=== PATIENT | female | born 1950 | race Caucasian/White ===

== ENCOUNTER 2016-10-06 22:05 | Emergency (ER) | payer OTHER ==
[~2016-10-06] VITALS: Ht 162.6 cm; Wt 56.7 kg
[~2016-10-06 22:05] MED LIST: AUGMENTIN 875875 MG PO; CEFTRIAXON1 GM/50 ML IV; CYMBALTA60 MG PO; DOXYCYCLINE 10100 MG PO; HYDROCODONE-AP1 EAC6 PO; KEFLEX500 MG PO; KEPPRA750 MG PO; LAMICTAL100 MG PO; MIRALAX17 GM PO; PERCOCET 5-3251 EACH PO; TOPAMAX 100 MG100 MG PO; TOPAMAX 25 MG T25 M1 PO; TYLENOL325 MG PO; UNICOMPLEX M TA1 TA1 PO; VITAMIN B COMP1 EACH PO; VITAMIN B-150 MG PO; VITAMIN B12-FO1 EAC1 PO; VITAMIN B122500 MCG; VITAMIN C500 M1 PO; ZOFRAN ODT4 MG PO
[2016-10-06] MEDS ORDERED: KEPPRA 500 MG500 M1 PO (22:39)
[2016-10-06] MEDS ORDERED: LEVETIRACETAM250 MG PO (22:40)
[2016-10-07] MEDS ORDERED: NORCO 5-325 TA1 EACH PO (00:50)
== END 2016-10-07 01:05 | disposition home or self-care (01) ==
LOC: ER 22:05
DX: S52.501A Unspecified fracture of the lower end of right radius, initial encounter for closed fracture (principal); S52.611A Displaced fracture of right ulna styloid process, initial encounter for closed fracture; F10.120 Alcohol abuse with intoxication, uncomplicated; Z98.890 Other specified postprocedural states; Z87.891 Personal history of nicotine dependence; X58.XXXA Exposure to other specified factors, initial encounter; Y93.89 Activity, other specified; Y92.89 Other specified places as the place of occurrence of the external cause; Y99.8 Other external cause status

== ENCOUNTER 2016-10-24 14:14 | Emergency (ER) | payer OTHER ==
[~2016-10-24] VITALS: Ht 175.3 cm; Wt 63.5 kg
[~2016-10-24 14:14] MED LIST changes: +KEPPRA 500 MG500 M1 PO; +LEVETIRACETAM250 MG PO; +NORCO 5-325 TA1 EACH PO
== END 2016-10-24 15:38 | disposition home or self-care (01) ==
LOC: ER 14:14
DX: S52.591A Other fractures of lower end of right radius, initial encounter for closed fracture (principal); G62.9 Polyneuropathy, unspecified; F10.99 Alcohol use, unspecified with unspecified alcohol-induced disorder; Z86.14 Personal history of Methicillin resistant Staphylococcus aureus infection; Z87.891 Personal history of nicotine dependence; W17.89XA Other fall from one level to another, initial encounter; Y93.89 Activity, other specified; Y92.89 Other specified places as the place of occurrence of the external cause; Y99.8 Other external cause status

== ENCOUNTER → 2017-01-20 | Outpatient (CLI) | payer OTHER | LOC: ULTRA 07:51 | DX: R92.8 Other abnormal and inconclusive findings on diagnostic imaging of breast (principal) ==

== ENCOUNTER → 2018-01-04 | Outpatient (CLI) | payer OTHER | LOC: CAT 14:43 | DX: S02.32XA Fracture of orbital floor, left side, initial encounter for closed fracture (principal); S06.9X0A Unspecified intracranial injury without loss of consciousness, initial encounter; X58.XXXA Exposure to other specified factors, initial encounter; Y93.89 Activity, other specified; Y92.89 Other specified places as the place of occurrence of the external cause; Y99.8 Other external cause status ==

== ENCOUNTER 2018-07-23 10:40 | Emergency (ER) | payer OTHER, MEDICARE ==
[~2018-07-23] VITALS: Ht 172.7 cm; Wt 65.8 kg
[2018-07-23 14:35] VITALS: BP 135/71
== END 2018-07-23 14:36 | disposition home or self-care (01) ==
LOC: ER 10:40
DX: S29.9XXA Unspecified injury of thorax, initial encounter (principal); S92.351A Displaced fracture of fifth metatarsal bone, right foot, initial encounter for closed fracture; S46.911A Strain of unspecified muscle, fascia and tendon at shoulder and upper arm level, right arm, initial encounter; S20.211A Contusion of right front wall of thorax, initial encounter; S01.81XA Laceration without foreign body of other part of head, initial encounter; Z87.891 Personal history of nicotine dependence; W01.0XXA Fall on same level from slipping, tripping and stumbling without subsequent striking against object, initial encounter; Y93.89 Activity, other specified; Y92.89 Other specified places as the place of occurrence of the external cause; Y99.8 Other external cause status

== ENCOUNTER 2018-08-09 10:49 | Inpatient (IN) | payer OTHER, MEDICARE ==
[~2018-08-09] VITALS: Ht 172.7 cm; Wt 76.3 kg
[~2018-08-09 10:49] MED LIST changes: -KEPPRA 500 MG500 M1 PO; +KEPPRA250 MG PO
[2018-08-09 11:08] LABS: ABSOLUTE NEUTROPHILS 7.6 thou/uL (1.4-8.2); BASOPHILS 0.7 % (0.0-2.0); EOSINOPHILS 0.1 % (0.0-3.0); HEMATOCRIT 38.3 % (37.0-47.0); HEMOGLOBIN 12.8 gm/dL (12.0-15.0); LYMPHOCYTES 19.8 % (24.0-44.0); MCH 32.4 pg (26.0-34.0); MCHC 33.5 g/dL (28.0-37.0); MCV 96.8 fL (80.0-100.0); PLATELET COUNT 328 thou/uL (150-400); POLYS 68.4 % (36.0-66.0); RBC 3.96 mil/uL (4.20-5.00); RDW 12.5 % (10.5-14.5); WBC 11.2 thou/uL (4.0-11.0)
[2018-08-09 11:17] LABS: CALCIUM 8.5 mg/dL (8.5-10.1); CREATININE 0.9 mg/dL (0.6-1.0); POTASSIUM 3.7 mmol/L (3.5-5.1)
[2018-08-09 11:23] LABS: ALBUMIN 3.6 g/dL (3.4-5.0); TOTAL BILIRUBIN 0.5 mg/dL (<0.1-1.0)
[2018-08-09] MEDS ORDERED: ATORVASTATIN CA40 MG PO (12:00)
[2018-08-09] MEDS ORDERED: FOSAMAX 70 MG T70 MG PO (13:34)
[2018-08-09] MEDS ORDERED: KEPPRA250 MG PO (13:34)
[2018-08-09] MEDS ORDERED: VITAMIN D2000 UNIT PO (13:35)
[2018-08-09 13:58] VITALS: BP 134/81
[2018-08-09 16:16] VITALS: BP 105/80
--- NOTE | 2018-08-09 16:36 | NUR ---
INITIAL ASSESSMENT: Pt evaluated for d/c planning needs. Reviewed chart and received telephone call from pt's PCP Dr Reilly. Pt lives alone in [address] [facility]. Pt said she was recovering from broken bones in her foot and fell again. Pt said she has walker and cane at home, and has history of alcohol use. PCP asked that CM call pt's daughter. Called daughter and left message. Pt has had home health in the past, and thinks it may have been [facility]. Will await input from PT after surgery re: d/c needs.
--- NOTE | 2018-08-09 17:05 | EKG ---
[address] [address] ELECTROCARDIOGRAM REPORT Name: SEFERINO SHETTY Room #: 364-P ADM IN M.R.#: [id number] ������������������ Admission: 08/09/18 ������������������ Attend Phys: Gildardo Chino MD Discharge: ������������������ Date of : 46 Report #: [id number] ����������������������������������������������������������������� [id number] THIS REPORT FOR: //name// [facility] ED Test Date: 2018-08-09 Test Time: 11:34:55 Pat Name: SEFERINO SHETTY Department: Room: 364 Gender: F Tree Farmer: STEPHANIE : 1950 Requested By: Shannan Wood Order Number: [id number] MD: Conrado Hartmann Measurements Intervals [place] Rate: 94 P: 63 SC: 150 QRS: 28 QRSD: 94 T: 52 QT: 366 QTc: 458 Interpretive Statements Sinus rhythm Borderline low voltage, extremity leads Baseline wander in lead(s) III,aVL,aVF,V2,V3,V4 No previous ECG available for comparison Electronically Signed On 08-09-2018 17:05:16 CDT by Conrado Hartmann [email or web address] ��������������������������������������������� <ELECTRONICALLY SIGNED> ���������������������������������������� By: Conrado Hartmann MD ��������������������������������������������� 08/09/18 1705 1134 1134 Conrado Hartmann MD /EPI
--- NOTE | 2018-08-09 18:42 | NUR ---
PT LIVES IN [facility] WITH 3 LEVELS ALONE...SHE HAS HAD MANY FALLS LATELY..FELL 2 WEEKS AGO AND HAS RT FX FOOT WITH WALKING BOOT...FELL LAST NIGHT @ 2345 IN KITCHEN AND FX RT FEMUR..SON STATES HIS MOM DRINKS AT LEAST 1/2 BOTTLE OF WINE EACH DEMETRIO..SHE STATES SHE FORGETS TO TAKE SEVERAL OF HER MEDS..SON AND HIS SISTER WANT PSYCH TO EVALUATE THEIR MOTHER FOR MEMORY ISSUES AND ETOH..
[2018-08-09 19:04] VITALS: BP 129/74
[2018-08-09 23:22] VITALS: BP 117/49
[2018-08-10] VITALS (20 sets, daily range): BP systolic 93–119; BP diastolic 47–62
[2018-08-10 05:11] LABS: HEMATOCRIT 30.8 % (37.0-47.0); MCHC 33.6 g/dL (28.0-37.0); MCV 98.3 fL (80.0-100.0); RBC 3.14 mil/uL (4.20-5.00); RDW 12.6 % (10.5-14.5); WBC 7.4 thou/uL (4.0-11.0)
[2018-08-10 05:13] LABS: HEMOGLOBIN 10.4 gm/dL (12.0-15.0)
[2018-08-10 05:22] LABS: CALCIUM 7.8 mg/dL (8.5-10.1); CREATININE 0.6 mg/dL (0.6-1.0); POTASSIUM 3.3 mmol/L (3.5-5.1)
--- NOTE | 2018-08-10 06:45 | NUR ---
PAITENT IS BED REST DUE TO HIP FX. PATIENT IS ALERT AND ORIENTED. CWIA IS A TWO. DAY ONE WITHOUT A DRINK. PATIENT LEFT FOR SURGERY AT 0615. PATIENT HAS BEEN NPO SENSE MIDNIGHT. PATIENT HAS A PRESTON. PATIENT IS ACHS. PATIENT WANTS TO KNOW BLOOD TYPE. PATIENTS PAIN IS CONTROLLED WITH PAIN MEDS WCM. PATIENT IS PROGRESSING TO GOALS.
--- NOTE | 2018-08-10 09:25 | NUR ---
post op report received from Nuria/david. pt's relative in room awaiting the pt's return to the room.
--- NOTE | 2018-08-10 09:56 | NUR ---
pt received to room 360 @ 0945 via her bed. vs taken and placed on interval timing. ivf's begun w/o concern, at this time, to lt fa. pt co thirst, given water to drink, w/o n/v at this time. x2 family members at bs.
--- NOTE | 2018-08-10 11:27 | NUR ---
pt resting quietly and comfortably in her bed w/ her son and grandson at bs. pt awaking occassionally dt hearing alarms and hallway noises, but easely and quickly falls back to sleep. pt co of rt hip discomfort 3-07/04 when awaken and asked, medicated w/ pain pill. ice pack to rt hip. pt on bedrest, bed alarm on. pt taking clear liquids w/ n/v. rt hip drsg c/d/i at this time.
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
[2018-08-11 04:00] VITALS: BP 88/51
[2018-08-11 06:19] LABS: HEMATOCRIT 25.6 % (37.0-47.0); HEMOGLOBIN 8.7 gm/dL (12.0-15.0); MCH 33.4 pg (26.0-34.0); MCHC 33.9 g/dL (28.0-37.0); MCV 98.6 fL (80.0-100.0); RBC 2.6 mil/uL (4.20-5.00); RDW 12.4 % (10.5-14.5); WBC 7.3 thou/uL (4.0-11.0)
--- NOTE | 2018-08-11 06:42 | NUR ---
PT MAKING SLOW PROGRESS TOWARDS GOALS. PT GIVEN LORTAB WITH ONLY MILD RELIEF. PT REPORTED MORE MODERATE RELIEF WITH IV MORPHINE. DENIES ANY OTHER COMPLAINTS. ENCOURAGED TO ASK FOR PAIN MEDICATION PRIOR TO WORKING WITH PHYSICAL THERAPY.
[2018-08-11 07:33] VITALS: BP 106/55
[2018-08-11 12:08] VITALS: BP 157/79
[2018-08-11 16:17] VITALS: BP 130/63
[2018-08-11 19:12] VITALS: BP 110/62
[2018-08-12 03:40] VITALS: BP 110/58
--- NOTE | 2018-08-12 07:43 | NUR ---
PT MAKING SLOW PROGRESS TOWARDS GOALS. X1 DOSE OF IV MORPHINE GIVEN FOR COMPLAINTS OF PAIN RIGHT HIP. NOTED PT LATE IN THE EVENING WAS YELLING OUT. UPON APPROACH THE PT STATED THAT HER SON WAS TRYING TO GET IN THROUGH THE WINDOW. PT HELD THIS BELIEF FIRMLY DESPITE ATTEMPT TO PROVIDE REALITY ORIENTATION. DID ENCOURAGE PT AND SHE DID AGREE TO TAKE THE LORTAB FOR PAIN INSTEAD OF THE MORPHINE.
[2018-08-12 08:05] VITALS: BP 100/42
--- NOTE | 2018-08-12 08:28 | NUR ---
care of pt assumed this am @ ~0700. pt noted to be resting quietly and comfortably in bed this am, before awokened for am assessment and medications. pt noted to be aox4, denies hallucinations (auditory and visual) at this time. pt states that her son was here in the hospital numerous times last night, noc rn states that the pt's son was not here for his shift, day rn noted pt's son to be here from ~ [id number] yesterday, but not this am. pt's son noted to work noc shift, has a and a son. pt noted to be confused and forgetful at times this am. pt co pain (when she moves) to her rt hip this am, 5-7/10, given po pain medication. pt encouraged to increase her activity today, (up to her chair x2 today and ambulation) to improve her mobility, strength and endurance. pt agrees that she will try. pt is post op day #2 today.
[2018-08-12 16:23] VITALS: BP 114/51
[2018-08-12 20:06] VITALS: BP 118/55
--- NOTE | 2018-08-13 04:18 | NUR ---
PT RESTING IN BED, APPEARS TO BE SLEEPING. PT ON RA. SR ON MONITOR. PT WITH MOHAN IN TACT. PT REQUIRED DOSE OF PAIN MEDICATION DURING SHIFT.
[2018-08-13 05:19] VITALS: BP 115/54
[2018-08-13 07:33] VITALS: BP 111/57
--- NOTE | 2018-08-13 11:14 | NUR ---
tele dc'd per dr. house ordered, verbally shared w/ rn. ms status now. pt awaiting placement for rehab by cm/sw.
--- NOTE | 2018-08-13 11:56 | NUR ---
Following for d/c planning needs. Reviewed chart and spoke with nurse, pt and pt's son. Pt is agreeable with going to rehab/SNF on d/c from hospital. Pt would prefer rehab, and would go to [facility] or [facility] SNF if [facility] Re[facility] not accepting. Awaiting input from Rehab re: acceptance.
--- NOTE | 2018-08-13 12:01 | O ---
[facility] [place] [address] OPERATIVE REPORT Name: SEFERINO SHETTY Room #: 360-P ADM IN M.R.#: [id number] Admission: 08/09/18 ������������������ Attend Phys: Gildardo Chino MD Discharge: ������������������ Date of : 46 Report #: [id number] THIS REPORT FOR: //name// CC: Gildardo Relily DATE OF SERVICE: 08/10/2018 PREOPERATIVE DIAGNOSIS: Right proximal femur fracture. POSTOPERATIVE DIAGNOSIS: Right proximal femur fracture. PROCEDURE: Right proximal femur fracture fixation with TFN nail. SURGEON: Milo Rolon MD INDICATIONS: This 67-year-old female with a number of general medical problems fell 24 hours ago injuring the right hip. X-rays confirmed an intertrochanteric fracture with moderate displacement. She has no other apparent injuries. We have discussed treatment options and she has elected to go ahead with surgical repair. DESCRIPTION OF PROCEDURE: The patient was taken to the operating room where she was placed under general anesthesia. Prophylactic intravenous antibiotics were administered. She was positioned on the fracture table with gentle longitudinal traction and slight internal rotation, which brought the fracture back into very satisfactory position. This was confirmed with the C-arm. The lateral aspect of the hip and thigh were meticulously prepped and draped. A skin incision was made just proximal to the greater trochanter and a guidewire passed through the tip of the trochanter into the canal. The trochanter was opened and an 11-mm diameter Synthes TFN nail was inserted. This was advanced to an appropriate level. A lateral guidewire was then passed through the lateral femoral cortex into the femoral neck and head positioning this in the mid to lower portion of the neck, which appeared to be quite satisfactory. This was confirmed with C-arm views. A 100 mm length helical blade was then inserted. This was impacted to a point about 10 mm below the subchondral bone at the femoral head. It seated nicely and appeared to be secure. The proximal fixation screw was tightened down. The distal interference screw was then inserted using the outrigger guide. It also seated nicely and appeared to be secure. The C-arm views revealed very satisfactory alignment of the fracture and the fixation. The wounds were gently irrigated and closed using 2-0 Monocryl and skin castillo. [address] [address] OPERATIVE REPORT Name: SEFERINO SHETTY [place] Room #: 360-P [facility] IN ..#: [id number] Admission: 08/09/18 ������������������ Attend Phys: Gildardo Chino MD Discharge: ������������������ Date of : 46 Report #: [id number] A sterile dressing was applied. The patient was awakened and returned to the recovery room in good condition. ��������������������������������������������� <ELECTRONICALLY SIGNED> ���������������������������������������� By: Milo Rolon MD ��������������������������������������������� 08/13/18 1201 0829 1033 Milo Rolon MD /nt
[2018-08-13] MEDS ORDERED: XARELTO10 MG PO ×2 (13:53)
[2018-08-13] MEDS ORDERED: HYDROCODON-ACE1 EAC7 PO ×2 (13:53)
[2018-08-13 16:37] VITALS: BP 129/49
--- NOTE | 2018-08-17 16:14 | HC ---
[facility] [address] CONSULTATION Name: SEFERINO SHETTY Room #: 360-P [facility] IN M.R.#: [id number] Admission: 08/09/18 ������������������ Attend Phys: Gildardo Chino MD Discharge: 08/13/18 ������������������ Date of : 46 Report #: [id number] THIS REPORT FOR: //name// CC: Gildardo Reilly DATE OF SERVICE: 08/09/2018 REASON FOR CONSULTATION: Right hip fracture. HISTORY OF PRESENT ILLNESS: The patient is a 67-year-old female who fell last night around midnight. She then reported right hip pain, is unsure if she lost consciousness, then awoke this morning with continued hip pain and her son brought in by private vehicle. She denies any other injuries with this incident. REVIEW OF SYSTEMS: NEUROLOGIC: Reports numbness and tingling in bilateral lower extremity secondary to peripheral neuropathy. MUSCULOSKELETAL: Reports history of a right fifth metatarsal fracture treated with a postop shoe that occurred 2 weeks ago after a fall. PAST MEDICAL HISTORY: Significant for peripheral neuropathy. MEDICATIONS: Include levetiracetam, lamotrigine, duloxetine, topiramate, hydrocodone, multivitamin with minerals, thiamin and polyethylene glycol. PAST SURGICAL HISTORY: She reports having an in the 1970s, left great toe amputation done approximately 2-3 years ago secondary to osteomyelitis. Per the chart there was report of a tib-fib fracture, ankle fracture and elbow fracture and then minor hand surgery. ALLERGIES: No known drug allergies. SOCIAL HISTORY: She denies use of any ambulatory devices, lives by herself and has 4 separate flights of stairs in her home. Her son is at her bedside and I was able to speak with her daughter who lives in [place]. Denies smoking cigarettes. Does admit to two alcoholic drinks a day. Both her children are concerned about her history of multiple falls and think her alcohol use may play a factor. PHYSICAL EXAMINATION: GENERAL: The patient is alert and oriented. She interacts appropriately. She is well-developed, well-nourished female in no acute distress. Her son is at her bedside. VITAL SIGNS: Most recent vital signs show heart rate 88, respiration rate 16, [facility] [address] [place] [address] CONSULTATION Name: SEFERINO SHETTY Room #: 360-[facility].#: [id number] Admission: 08/09/18 ������������������ Attend Phys: Gildardo Chino MD Discharge: 08/13/18 ������������������ Date of : 46 Report #: [id number] blood pressure 135/96, pulse oximetry 98% on room air. EXTREMITIES: Examination of her bilateral upper extremities, skin is clean, dry and intact. She has brisk capillary refill. She has sensation is intact to light touch throughout. Gross motor function intact and grossly normal strength and motion. No tenderness to palpation to the bilateral sternum and clavicles, bilateral shoulders, arms, elbows, forearms, wrists or hands. She moves all these joints without pain. Right lower extremity exam, she has a right lower extremity in a postop shoe. She has tenderness at the fifth metatarsal base. No other tenderness at the knee, leg, ankle or foot. There is mild pain with right hip range of motion. No pain with right knee range of motion or ankle range of motion. Left lower extremity exam, sensation is grossly intact. Again, she has a history of peripheral neuropathy in both sides. She is currently gross motor and sensory is intact. She has no tenderness to palpation throughout the entire left lower extremity. No pain with range of motion, left hip, knee, ankle or foot. LABORATORY DATA: Done on 08/09/2018 show white blood cell count 11.2, hemoglobin 12.8, hematocrit 38.3, platelet count 328. Chemistry is grossly normal. Serum alcohol level is less than 10. RADIOGRAPHS: AP and lateral of the right femur shows a displaced intertrochanteric femur fracture. IMPRESSION AND PLAN: Right displaced intertrochanteric femur fracture. The patient had a few bites of a breakfast sandwich about 10:30 this morning. The medical doctor is getting ready to see the patient. We will get her medically cleared today and hopefully put her on the schedule tomorrow morning with one of my [facility] partners. I discussed the typical procedure as well as postoperative course. The risks, benefits, alternatives and complications were discussed including but not limited to decreased ambulatory level, blood clots, infection, damage to vessels or nerves, nonunion, malunion, hardware failure, hardware irritation and stiffness. Informed consent was obtained. She did have a conversation with the patient's daughter who is concerned about her family history of psychiatric disorders as well as her feeling that the patient may be developing some memory problems or dementia as well as her alcohol use with history of multiple falls. I discussed this with the primary care doctor and he will consider a psychiatric consult and evaluation. I have [facility] [address] [place] [address] CONSULTATION Name: SEFERINO SHETTY Room #: 360-P DIS IN M.R.#: [id number] Admission: 08/09/18 ������������������ Attend Phys: Gildardo Chino MD Discharge: 08/13/18 ������������������ Date of : 46 Report #: [id number] ordered a vitamin D level and she most likely will need to be worked up for osteoporosis as an outpatient. ��������������������������������������������� <ELECTRONICALLY SIGNED> ���������������������������������������� By: Irais Garner MD ��������������������������������������������� 08/17/18 [id number] [id number] Irais Garner MD /nt
--- NOTE | 2018-08-24 10:09 | HC ---
[facility] [place] [address] CONSULTATION Name: SEFERINO SHETTY Room #: 360-P [facility] IN M.R.#: [id number] Admission: 08/09/18 ������������������ Attend Phys: Gildardo Chino MD Discharge: 08/13/18 ������������������ Date of : 46 Report #: [id number] THIS REPORT FOR: //name// CC: Gildardo Floydrenée DATE OF SERVICE: 08/13/2018 HISTORY OF PRESENT ILLNESS: The patient is a 67-year-old white female who has a recent right fifth metatarsal fracture 07/23/2018, for which she was using a Darco shoe. Apparently tripped and fell and had a subsequent injury involving her right hip. She was diagnosed with a right proximal femur fracture and underwent a trochanteric fixation nailing on 08/10/2018. She is allowed partial weightbearing right lower extremity with walker. There is a history of alcohol usage, although no note of any withdrawal per se. PRIOR HISTORY: Include septic arthritis, osteomyelitis, MSSA, peripheral neuropathy. She had a left second toe ulcer with amputation. PRIOR SURGICAL HISTORY: Includes tib-fib fracture, ankle fracture, right elbow fracture, left great toe amputation as noted above. MEDICATIONS: Please see the full medication listing as noted above. ALLERGIES: No known drug allergies. SOCIAL HISTORY: Lives in a Condominium, 6 steps in and then 21 inside steps. It sounds like there are several levels. She has an involved son and sounds like she might be able to stay with the son, who do not have these many steps and may of the son could stay with her. The son lives with his own family. REVIEW OF SYSTEMS: No current complaints of chest pain, shortness of breath or abdominal discomfort. PHYSICAL EXAMINATION: GENERAL: The patient is a 67-year-old white female in no obvious distress. VITAL SIGNS: Last recorded temperature 98.3, pulse 79, respirations 16, blood pressure 111/57. The patient is alert. HEENT: Appeared to be benign. NEUROLOGIC: Cranial nerves are grossly intact. Facies are symmetric. EXTREMITIES: She has functional range of motion of both upper extremities without obvious focal weakness. DTRs are trace to 1. Right hip is dressed. There is no focal calf swelling. She can dorsiflex the right ankle. Left lower extremity, she has the old left large toe amputation. She does have decreased distal sensation in bilateral lower extremities to sensory testing. This is decreased in a stocking distribution with decreased proprioception. She does [facility] [address] [place] [address] CONSULTATION Name: SEFERINO SHETTY Room #: 360-P [facility] IN [facility].#: [id number] Admission: 08/09/18 ������������������ Attend Phys: Gildardo Chino MD Discharge: 08/13/18 ������������������ Date of : 46 Report #: [id number] have the Darco shoe that she wears for the right foot. Strength of the left lower extremity is probably a grade 4-/5. She is needing assistance with basic functional mobility skills. ASSESSMENT: A 67-year-old white female with the following problem list: 1. Right proximal femur fracture, status post trochanteric fixation nailing 08/10/2018, partial weightbearing. 2. Right fifth metatarsal fracture, for which, she has a Darco shoe. This is a premorbid issue from 07/23/2018. 3. Fall on 07/23/2017 when she fell striking her head with positive loss of consciousness and believes she passed out for approximately 30 seconds. 4. Peripheral neuropathy. 5. History of ETOH usage one to two glasses of vodka per day. No withdrawal was noted per se. Psychiatry has seen her, Dr. Becerra. 6. Methicillin-sensitive Staphylococcus aureus. 7. Prior left large toe amputation. 8. History of left second toe ulcer. PLAN: We are assessing her tolerance for acute inpatient rehabilitation and will be glad to further assist regarding this patient's rehabilitation needs. ��������������������������������������������� <ELECTRONICALLY SIGNED> ���������������������������������������� By: Milo Camacho MD ��������������������������������������������� 08/24/18 [id number] Milo Camacho MD /nt
== END 2018-08-13 18:34 | DRG 481 ==
LOC: ER 10:49 → 3W 11:48 → EROBS 11:48 → 3W 14:57
PROVIDERS: Physician Assistant; ADMIT Hospitalist
PROC: 0QS604Z Reposition Right Upper Femur with Internal Fixation Device, Open Approach (ICD-10-PCS; principal; 2018-08-10)
DX: S72.141A Displaced intertrochanteric fracture of right femur, initial encounter for closed fracture (principal); R71.0 Precipitous drop in hematocrit; G62.9 Polyneuropathy, unspecified; S09.90XA Unspecified injury of head, initial encounter; W01.0XXA Fall on same level from slipping, tripping and stumbling without subsequent striking against object, initial encounter; Z60.2 Problems related to living alone; K59.00 Constipation, unspecified; M81.0 Age-related osteoporosis without current pathological fracture; E78.5 Hyperlipidemia, unspecified; Y93.89 Activity, other specified; Y92.89 Other specified places as the place of occurrence of the external cause; Y99.8 Other external cause status; Z91.81 History of falling; Z81.8 Family history of other mental and behavioral disorders; Z22.321 Carrier or suspected carrier of Methicillin susceptible Staphylococcus aureus; Z89.412 Acquired absence of left great toe; Z87.81 Personal history of (healed) traumatic fracture; Z79.899 Other long term (current) drug therapy; Z72.89 Other problems related to lifestyle
CPT/HCPCS: 10879; 50010; 50101; 50133; 50386; 51412; 51538; 51817; 52146; 52304; 55430; 56525; 57092; 62110; 62900; 70005

== ENCOUNTER 2018-08-13 15:57 | Inpatient (IN) | payer OTHER, MEDICARE ==
[~2018-08-13] VITALS: Ht 175.3 cm; Wt 74.4 kg
--- NOTE | ~2018-08-13 | H ---
[facility] [place] [address] HISTORY AND PHYSICAL Name: SEFERINO SHETTY Room #: 515-P [facility] IN M.R.#: [id number] Admission: 08/13/18 ������������������ Attend Phys: Milo Camacho MD Discharge: ������������������ Date of : 46 Report #: [id number] THIS REPORT FOR: //name// CC: Milo Floydrenée DATE OF SERVICE: 08/14/2018 HISTORY OF PRESENT ILLNESS: This is a 67-year-old female who had an initial fall back on 07/23/2018 and sustained a right fifth metatarsal fracture for which she was placed in a Darco shoe. She also hit her head during that fall and had positive loss of consciousness for approximately 30 seconds. She had been residing at home when on 08/09/2018, she had a subsequent fall and sustained a right proximal femur fracture. She underwent a trochanteric fixation with nailing on 08/10/2018 and is allowed partial weightbearing status of the right lower extremity. The patient does have history of alcohol use. No signs of withdrawal were noted. Due to her decline in functional mobility and need for medical treatment, she is admitted to acute inpatient rehabilitation. Today, the patient reports no headache, dizziness or blurred vision. She denies cough, shortness of air or chest pain. She denies abdominal pain or nausea. She had a bowel movement yesterday. She reports appetite is about normal. She has no bladder complaints. She has pain in the right hip and leg. She denies pain in her foot or toes from the metatarsal fracture. She does have general fatigue. 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 HABITS: She drinks alcohol daily 1 or 2 glasses of vodka or wine. She is a nonsmoker. No illicit drug use. SOCIAL HISTORY: She lives alone in a condo. She does have a supportive son who may be able to help at the time of discharge. Her condo is multilevel. She has multiple devices at home walker, cane and crutches. She does not use a device on a regular basis. When she does, it is usually the single point cane. It is approximately 6 stairs to enter the condo and approximately 4 sets of stairs inside, 6-7 steps on each flight with bilateral handrails on 2 sets and unilateral hand rail on 2 sets. She had been independent with IADLs and ADLs. She still drives. She is retired. CODE STATUS: Full code. MEDICATIONS: MiraLax 17 grams daily, Protonix 20 mg daily, Colace 100 mg twice a day, potassium 40 mEq x 1 today, Xarelto 10 mg daily, Keppra 500 mg daily, [facility] [address] [place] [address] HISTORY AND PHYSICAL Name: SEFERINO SHETTY Room #: 515-P ADM IN M.R.#: [id number] Admission: 08/13/18 ������������������ Attend Phys: Milo Camacho MD Discharge: ������������������ Date of : 46 Report #: [id number] Cymbalta 60 mg daily, vitamin D 2000 units daily, Topamax 200 mg twice a day, Keppra 750 at bedtime, Lamictal 100 mg at bedtime, Lipitor 40 mg at bedtime, Colace 100 mg p.r.n. twice a day, [place] one tablet q.4h. p.r.n. ALLERGIES: No known drug allergies. REVIEW OF SYSTEMS: Remainder of her 14-point review of systems is negative except as listed in HPI. PHYSICAL EXAMINATION: VITAL SIGNS: Blood pressure 111/55, respirations 20, pulse of 88, temperature 97.5, O2 sat 98% on room air. GENERAL: She is awake, alert. She is oriented x 4. She does have some latency in her verbal responses. She is in no acute distress. She is on room air. HEAD: Normocephalic. EYES: EOMs are intact with no icterus. ENT: She has no sinus tenderness, no pharyngitis, no lymphadenopathy. CARDIAC: She has regular rate and rhythm. S1, S2 intact. CHEST: Lungs are clear to auscultation bilaterally. No crackle, no wheeze. ABDOMEN: Bowel sounds are positive. Soft, nontender, nondistended. GENITOURINARY: No CVA tenderness. Bladder is not palpable. EXTREMITIES: She has functional range of motion of the bilateral upper extremities. Wire Spring Relay Adjuster are equal. Upper extremity strength is approximately 4-/5. She has functional use of the left lower extremity. Right lower extremity, she is unable to lift off the bed. She can flex and dorsiflex the right ankle. She has negative Homans sign bilaterally. She does have previous left great toe amputation. She has a decrease in sensation in bilateral lower extremities. Toileting is mod assist, sit to stand is mod assist, min assist to ambulate 25 feet with a front wheel walker. She has a Darco shoe for the right foot. PSYCHIATRIC: Flat affect. NEUROLOGIC: Cranial nerves 2-12 grossly intact. ASSESSMENT: 1. Right proximal femur fracture, status post trochanteric fixation nailing 08/10/2018. She is allowed partial weightbearing on the right lower extremity approximately 50%. 2. Right fifth metatarsal fracture from 07/23/2018, status post fall. She is wearing a Darco shoe. 3. Closed head injury with loss of consciousness from fall on 07/23/2018. 4. Premorbid peripheral neuropathy. 5. Chronic alcohol use. No signs of withdrawal at this time. 6. Hyperlipidemia. 7. Depression. 8. Recurrent falls. PLAN: The patient is admitted to [address] [place] [address] for physical, [address] [address] HISTORY AND PHYSICAL Name: SEFERINO SHETTY Room #: 515-P [facility] IN ..#: [id number] Admission: 08/13/18 ������������������ Attend Phys: Milo Camacho MD Discharge: ������������������ Date of : 46 Report #: [id number] occupational and I will consult speech for cog evaluation, could be related to her chronic alcohol use versus the closed head injury last month sustained during her fall. The patient does appear to have some cognitive deficits. Hospitalist services will follow for acute medical management. She will have neuropsychology testing done. She will be on a regular diet. Social work services consult for discharge planning. She will have a team conference today, Monday08/14/2018 for discussion of discharge planning. Please see extensive orders. ��������������������������������������������� ���������������������������������������� By: ��������������������������������������������� 1222 1307 Elizabeth [place], WINDOWS SOFTWARE DEVELOPER /nt
[~2018-08-13 15:57] MED LIST changes: +ATORVASTATIN CA40 MG PO; +FOSAMAX 70 MG T70 MG PO; +HYDROCODON-ACE1 EAC7 PO; +VITAMIN D2000 UNIT PO; +XARELTO10 MG PO
[2018-08-13 22:40] VITALS: BP 107/62
--- NOTE | 2018-08-14 05:00 | NUR ---
UP TO BSC WITH ASSIST FOR VOID AFTER TEN MINUTES OF EFFORT, PAIN MED BY REQUEST AT THIS TIME. GUYEL AG COVERING INCISION. PLEASANT
[2018-08-14 06:26] LABS: HEMATOCRIT 24.5 % (37.0-47.0); HEMOGLOBIN 8.2 gm/dL (12.0-15.0); MCH 32.8 pg (26.0-34.0); MCHC 33.5 g/dL (28.0-37.0); RBC 2.5 mil/uL (4.20-5.00); RDW 12.4 % (10.5-14.5); WBC 6.2 thou/uL (4.0-11.0)
[2018-08-14 06:35] LABS: CALCIUM 8.3 mg/dL (8.5-10.1); CREATININE 0.6 mg/dL (0.6-1.0); POTASSIUM 3.4 mmol/L (3.5-5.1)
[2018-08-14 08:15] VITALS: BP 111/55
--- NOTE | 2018-08-14 12:00 | NUR ---
chart review, pt up in wc. pleasant and able to make her needs know. no co. intro to cm, dcp, and team meeting. pt report " live alone in 3 story home. support from daughter and son. daughter live in [place]. have 2 walker, and cane. have sp shoe. laundry on bottom floor. have alarm system. no life alert. will cont following as needed for dc needs.
--- NOTE | 2018-08-14 12:52 | NUR ---
Assess due to high nutrition screening trigger for wt loss and decreased appetite. Admitted on to rehab unit following hip fx w/ surgery 08/10, and also prior right ankle fracture. +etoh use at home. On regular diet and stated ate at least 1/2 of breakfast which is more than what she eats at home. Aware of how to order own meals. Stated usual wts 140-145 lb. Current wts much higher 162-164 lb, need to confirm. Low nutrition risk
--- NOTE | 2018-08-14 14:17 | NUR ---
team meeting, recommendation: re team
--- NOTE | 2018-08-15 02:22 | NUR ---
PT ALERT AND ORIENTED X 4. UP TO BSC WITH ASSIST X 1. VOIDING ADEQUATE AMTS CONCENTRATED YELLOW URINE. AQUACELL DRESSING TO RIGHT HIP WITH LARGE AMT DRAINAGE NOTED. PT C/O PAIN IN RIGHT HIP. HYDROCODONE GIVEN AT THIS TIME. BED ALARM ON FOR SAFETY. PT CHECKED ON HOURLY ROUNDS.
[2018-08-15 08:00] VITALS: BP 115/59
--- NOTE | 2018-08-15 16:57 | NUR ---
ASSUMED CARE AT APPROX 0715. PATIENT A/OX4. BP ELEVATED- MEDS GIVEN PER ORDERS, PATIENT DENIES HEADACHE, DIZZINESS, BLURRY VISION. C/O RIGHT HIP PAIN. AQUACELL DRESSSING INTACT TO RIGHT HIP. HIP PRECAUTIONS IN PLACE. PARTICIPATING IN THERAPY. PAIN MEDS PROVIDED PRN. FALL PRECAUTIONS IN PLACE. CALLS APPROPRIATELY FOR ASSISTANCE. ROUNDED ON FREQUENTLY. RESTING IN BED. WILL CONTINUE TO MONITOR.
[2018-08-15 19:36] VITALS: BP 108/62
--- NOTE | 2018-08-16 01:19 | NUR ---
PT ALERT AND ORIENTED X 2. UP TO BSC WITH ASSIST X 1. RIGHT HIP DRESSING C/D/I. PT DENIES PAIN OR DISCOMFORT. BED ALARM ON FOR SAFETY. PT APPEARS TO BE SLEEPING ON HOURLY ROUNDS.
--- NOTE | 2018-08-16 14:48 | NUR ---
PT A&OX4, AMBULATES WITH WALKER AND MODERATE ASSIST X1, PARTIAL WT BEARING TO L FOOT. TOLERATING PO WELL. WILL CONT POC.
--- NOTE | 2018-08-17 04:30 | NUR ---
LARGE LOOSE INCONTINENT BOWEL, PATIENT APPARENTLY SLEEPING THROUGH. BECAUSE IT'S SO WATERY, THE AMOUNT OF URINE INVOLVED IS UNKNOWN SO BLADDER CHECKED AND SHOWED 113 CC PER BLADDER SCANNER. PAIN MED NOW PER REQUEST
[2018-08-17 05:34] LABS: ABSOLUTE NEUTROPHILS 3.3 thou/uL (1.4-8.2); BASOPHILS 0.5 % (0.0-2.0); EOSINOPHILS 2.8 % (0.0-3.0); HEMATOCRIT 27.5 % (37.0-47.0); HEMOGLOBIN 9.1 gm/dL (12.0-15.0); LYMPHOCYTES 31.2 % (24.0-44.0); MCH 32.7 pg (26.0-34.0); MCHC 33.2 g/dL (28.0-37.0); MCV 98.4 fL (80.0-100.0); MONOCYTES 10.9 % (1.0-8.0); POLYS 54.6 % (36.0-66.0); RDW 12.7 % (10.5-14.5)
[2018-08-17 05:39] LABS: PLATELET COUNT 364 thou/uL (150-400)
[2018-08-17 05:43] LABS: CALCIUM 8.3 mg/dL (8.5-10.1); CREATININE 0.6 mg/dL (0.6-1.0); MAGNESIUM 2.2 mg/dL (1.8-2.4); POTASSIUM 3.7 mmol/L (3.5-5.1)
[2018-08-17 07:15] VITALS: BP 118/66
[2018-08-17 08:00] VITALS: BP 118/66
--- NOTE | 2018-08-17 19:15 | NUR ---
ASSUMED CARE AT APPROX 0715. HAD ONE INCONT BM THIS AM. PATIENT A/OX4. ANXIOUS AT TIME D/T PAIN. C/O RIGHT HIP PAIN 09/03, PRN HYDROCODONE GIVEN 3X TODAY. AQUACELL DRESSSING INTACT TO RIGHT HIP. HIP PRECAUTIONS IN PLACE. PARTICIPATING IN THERAPY. PARTIAL WB ON RIGHT LE. HAS BOOT ON RIGHT FEET WHEN AMBULATES. PAIN IS MANAGEABLE WITH MEDS PROVIDED PRN. FALL PRECAUTIONS IN PLACE. CALLS APPROPRIATELY FOR ASSISTANCE. ROUNDED ON FREQUENTLY. RESTING IN BED NOW, SON CAME VISIT TODAY AND SUPPORTING HIS MOTHER. GAVE REPORT TO NIGHT NURSE TO CONTINUE TO MONITOR.
[2018-08-17 20:00] VITALS: BP 111/58
[2018-08-17 20:15] VITALS: BP 111/58
--- NOTE | 2018-08-18 03:13 | NUR ---
PATIENT ALERT AND ORIENTED X4. TORNADO WARNING AT BEGINNING OF SHIFT AND PATIENT OUT TO CENTER OF UNIT VIA WHEELCHAIR. TOLERATED WELL. DRESSING TO RIGHT HIP DRY AND INTACT. DENIES PAIN. REFUSED DOCUSATE SODIUM AND POLY GLYCHOL THIS EVENING. RESTING QUIETLY AT TIME OF NOTE. WILL MONITOR.
[2018-08-18 08:57] VITALS: BP 125/59
--- NOTE | 2018-08-18 10:27 | NUR ---
ASSUMED CARE AT APPROX 0715. PATIENT A/OX4. HIP PAIN 09/03, PRN HYDROCODONE GIVEN EARLIER AQUACELL DRESSSING INTACT TO RIGHT HIP. HIP PRECAUTIONS IN PLACE. PARTICIPATING IN THERAPY. PARTIAL WB ON RIGHT LE. HAS BOOT ON RIGHT FEET WHEN AMBULATES. VSS ON RA. REASSESSMENT PER CHART. LAST BM WAS YESTERDAY. TOOK COLACE BUT REFUSE MIRALAX DAILY. WILL OBTAIN ORDER TO CHANGE TO PRN. WHEN ASKING ABOUT HER MEMORY PT SAID HER MEMORY OK BUT MORPHINE WAS MESSED HER MEMORY UP. IT MADE SHE HALLUCINATED. ALLERGY ENTERED. FALL PRECAUTIONS IN PLACE. CALLS APPROPRIATELY FOR ASSISTANCE. ROUNDED ON FREQUENTLY. RESTING IN BED NOW. WILL CONTINUE TO MONITOR.
[2018-08-18 20:32] VITALS: BP 154/70
--- NOTE | 2018-08-19 03:50 | NUR ---
PAIN MED BY REQUEST AT TEN PM, HAS SLEPT WELL AND DID NOT WANT ANOTHER PILL AT THIS TIME AFTER RECENT TRIP TO BATHROOM. PAINFUL ONLY DURING WALK BACK FROM BATHROOM, BUT CALMED DOWN QUICKLY AFTER RETURN TO BED. DOES WELL LEANING ON WALKER TO KEEP LEG AT PARTIAL WEIGHT BEARING
--- NOTE | 2018-08-19 18:18 | NUR ---
ASSUMED CARE AT APPROX 0715. PATIENT A/O X4. C/O RIGHT HIP AND THIGH PAIN. PAIN MEDS ADMINISTERED AVAILABLE, PATIENT DENIES ICE PACK IS HELPFUL. AQUACELL DRESSING TO RIGHT HIP IS C/D/I. PATIENT PARTICIPATED IN PHYSICIAL THERAPY. TRANSFERED AND AMBULATED X1 PERSON ASSIST. CALLS APPROPRIATELY FOR ASSISTANCE. FALL PRECAUTIONS IN PLACE. RESTING IN BED AT THIS TIME. BED ALARM ON. WILL CONTINUE TO MONITOR.
[2018-08-19 19:47] VITALS: BP 120/61
--- NOTE | 2018-08-20 03:45 | NUR ---
USING BSC WITH MOD ASSIST TO KEEP PWB WEIGHT BEARING RESTRICTION. PAIN MED AT HS AND HAS BEEN SLEEPING SINCE. WAS ABLE TO ASK FOR 2100 AND PRN MEDS. PLEASANT
[2018-08-20 08:00] VITALS: BP 116/68
--- NOTE | 2018-08-20 15:47 | NUR ---
ASSUMED CARE AT APPROX 0715. PATIENT A/OX4. REPORTS SLEPT GOOD LAST NIGHT. HIP PAIN /10, PRN HYDROCODONE GIVEN 2X. AQUACELL DRESSSING INTACT TO RIGHT HIP. HIP PRECAUTIONS IN PLACE. PARTICIPATING IN THERAPY. PARTIAL WB ON RIGHT LE. HAS DARCO BOOT ON RIGHT FEET WHEN AMBULATES. VSS ON RA. REASSESSMENT PER CHART. LAST BM WAS YESTERDAY. ENCOURAGED PT TO DINNING ROOM FOR MEALS BUT REFUSED. SON CAME VISIT EARLIER. TOOK SHOWER WITH OT THIS AM. HER GOALS ARE WORK HARD WITH THERAPY SO SHE CAN GO HOME. FALL PRECAUTIONS IN PLACE. CALLS APPROPRIATELY FOR ASSISTANCE. ROUNDED ON FREQUENTLY. RESTING IN BED ENJOY WATCHING JEOPARDY SHOW. WILL CONTINUE TO MONITOR.
[2018-08-20 19:42] VITALS: BP 130/55
--- NOTE | 2018-08-21 00:28 | NUR ---
assumed care at approx 1900 evening 08/20. pt lying in bed with head of bed elevated resting and watching tv at change of shift. pt alert and oriented x4, pleasant and cooperative. pt took hs meds with water tolerating well. pt appears to be sleeping soundly with hourly rounding checks. bed alarm on and call light in reach. will continue to monitor.
[2018-08-21 09:04] VITALS: BP 126/71
--- NOTE | 2018-08-21 10:13 | NUR ---
ASSUMED CARE AT APPROX 0715. PATIENT A/OX4. REPORTS DIDN'T SLEPT WELL LAST NIGHT SINCE PATIENT NEXT DOOR SNORED LOUNDLY AT NIGHT. REQUESTS TO CHANGE ROOM. HIP PAIN 11/03, PRN HYDROCODONE GIVEN SOON BEFORE THERAPY . AQUACELL DRESSSING INTACT TO RIGHT HIP. HIP PRECAUTIONS IN PLACE. PARTICIPATING IN THERAPY. PARTIAL WB ON RIGHT LE. HAS DARCO BOOT ON RIGHT FEET WHEN AMBULATES. VSS ON RA. REASSESSMENT PER CHART. LAST BM WAS 3 DAYS AGO. DOESN'T WANT TO TAKE MIRALAX WHICH CAUSED HER DIARRHEA LAST TIME. ENCOURAGED PT TO TAKE TODAY SINCE IT IS 3 DAYS AND SHE HAS BEEN TAKEN HYDROCODONE FREQUENTLY. PT TOOK MIRALAX WITH APPLE JUICE AND MORNING MEDS. HER GOALS ARE WORK HARD WITH THERAPY SO SHE CAN GO HOME. FALL PRECAUTIONS IN PLACE. CALLS APPROPRIATELY FOR ASSISTANCE. ROUNDED ON FREQUENTLY. WILL CONTINUE TO MONITOR.
--- NOTE | 2018-08-21 12:36 | NUR ---
team meeting, recommendation: dc 08/27 with hh ( pt,ot,st, nursing), family to initial check in on her. stop drink alcohol. no driving till cleared with pcp. outpt neuro pysch. family assist with meds set up and bills.
[2018-08-21 20:15] VITALS: BP 129/73
--- NOTE | 2018-08-22 02:46 | NUR ---
PT ALERT AND ORIENTED X 4. DRESSING TO RIGHT HIP C/D/I. PT CALLED FOR HS MEDS APPROPRIATELY. PT C/O PAIN IN RIGHT HIP. HYDROCODONE GIVEN X 1 AND PT SLEEPING UPON REASSESSMENT. BED ALARM ON FOR SAFETY. PT APPEARS TO BE SLEEPING ON HOURLY ROUNDS.
--- NOTE | 2018-08-22 07:50 | NUR ---
pt choice [facility] to have referral sent for hh. will cont following as needed for dc need. pt up working with ot.
[2018-08-22 08:15] VITALS: BP 124/55
--- NOTE | 2018-08-22 15:06 | NUR ---
Patient participated in community reintegration on 08/22/18 with Physical Therapy. Refer to documentation by PT.
--- NOTE | 2018-08-22 15:38 | NUR ---
ASSUMED CARE AT APPROX 0715. PATIENT A/O X4. VSS. CALLS APPROPRIATELY FOR MEDICATION SPEECH THERAPY ACTIVITY. MEDICATED FOR PAIN AVAILABLE. DRESSING TO RIGHT HIP C/D/I. PATIENT UP TO TOILET, ONE PERSON ASSIST, GAIT BELT, AND WALKER. PARTIAL WEIGHT BEARING ON RLE. WEARING ORTHOPEDIC SHOE WHEN AMBULATING. FALL PRECAUTIONS IN PLACE. PARTICIPATING IN THERAPY. RESTING IN BED AT THIS TIME. WILL CONTINUE TO MONITOR.
[2018-08-22 19:58] VITALS: BP 112/52
--- NOTE | 2018-08-23 03:17 | NUR ---
PT ALERT AND ORIENTED X 4. AMB TO BR WITH WALKER AND ASSIST X 1 WITHOUT DIFFICULTY. RIGHT HIP DRESSING C/D/I. PT DENIES PAIN OR DISCOMFORT. BED ALARM ON FOR SAFETY. PT APPEARS TO BE SLEEPING ON HOURLY ROUNDS.
[2018-08-23 09:49] VITALS: BP 129/52
--- NOTE | 2018-08-23 14:12 | NUR ---
Followup: Admitted to rehab with hx of hip fracture with surgery on 08/10 and additional prior fall with ankle fracture. Hx etoh use at home. Usual wt is 140-145 lb, last wt obtained 08/14 164 lb. Has been eating >50% of meals. Not happy with food choices and tries to order from alternative menu when she can. Assisted today ordering 2 meals, provided ideas and options. Discharge is pending Monday. Low nutrition risk
--- NOTE | 2018-08-23 15:49 | NUR ---
ASSUMED CARE AT APPROX 0715. PATIENT A/O X4. VSS. ABLE TO VOICE HER NEEDS. CALLS APPROPRIATELY FOR MEDICATION SPEECH THERAPY ACTIVITY. C/O RIGHT LEG PAIN 7/10, PRN PAIN MED GIVEN 2X. PAIN IS MANAGABLE WITH PRN ORDER. DRESSING TO RIGHT HIP C/D/I. PATIENT UP TO TOILET, ONE PERSON ASSIST, GAIT BELT, AND WALKER. PARTIAL WEIGHT BEARING ON RLE. WEARING ORTHOPEDIC SHOE WHEN UP. OFFERED SUPPORTIVE CARE. ENCOURAGED PT TO VOICE HER NEEDS. PT SAID SHE DIDN'T SLEEP WELL LAST NIGHT. NOTIFIED ZAIN AND OBTAIN ORDER FOR MELATONIN AT . WILL GIVE REPORT TO NIGHT NURSE TO MONITOR SLEEP AT NIGHT. FALL PRECAUTIONS IN PLACE. PT PARTICIPATING WELL IN THERAPY. PT HAS BEEN WALKING TO DINNING ROOM FOR MEALS. UP WITH A WALKER, CGA OR MIN ASSIST. REASSESSMENT PER CHART, HAD ONE INCONT BLADDER LAST NIGHT. BUT CONTINENT DURING DAY. PT HAS BEEN COOPERATIVE WELL WITH STAFF AND HER GOALS TO CONTINUE WORK WITH THERAPY TO GET BETTER AND WORKING TOWARD D/C GOALS. WILL CONTINUE TO MONITOR.
[2018-08-23 19:40] VITALS: BP 120/57
--- NOTE | 2018-08-23 23:23 | NUR ---
PT ASSESSMENT COMPLETED AND VSS. MEDS GIVEN ORDERED AND WELL TOLERATED. FALL PRECAUTIONS IN PLACE. UP TO THE BATHROOM WITH ASST/GAIT/WALKER/SPECIAL SHOE. VOIDING MODERATE AMOUNT OF YELLOW URINE. DSG ON R HIP DRY AND INTACT. C/O R HIP PAIN LEVEL 6. PAIN MEDICATION AND SLEEPING MEDICATION WORKING WELL. WILL CONTINUE TO MONITOR FREQUENTLY.
[2018-08-24 05:48] LABS: ABSOLUTE NEUTROPHILS 2.9 thou/uL (1.4-8.2); BASOPHILS 0.8 % (0.0-2.0); EOSINOPHILS 3.4 % (0.0-3.0); HEMATOCRIT 30.5 % (37.0-47.0); HEMOGLOBIN 10.1 gm/dL (12.0-15.0); LYMPHOCYTES 31.8 % (24.0-44.0); MCH 32.5 pg (26.0-34.0); MCHC 33.1 g/dL (28.0-37.0); MCV 98.3 fL (80.0-100.0); MONOCYTES 8.8 % (1.0-8.0); PLATELET COUNT 379 thou/uL (150-400); POLYS 55.2 % (36.0-66.0); RBC 3.11 mil/uL (4.20-5.00); RDW 14.1 % (10.5-14.5); WBC 5.2 thou/uL (4.0-11.0)
[2018-08-24 05:59] LABS: CALCIUM 8.7 mg/dL (8.5-10.1); CREATININE 0.6 mg/dL (0.6-1.0); MAGNESIUM 1.9 mg/dL (1.8-2.4); POTASSIUM 3.8 mmol/L (3.5-5.1)
[2018-08-24 09:01] VITALS: BP 134/50
--- NOTE | 2018-08-24 09:57 | NUR ---
ASSUMED CARE AT 0700. PATIENT IS ALERT AND ORIENTED X4. PATIENT VALADEZ'S , COMBUSTION ANALYST ARE EQUAL. LUNGS ARE CLEAR. ABD IS SOFT WITH BSX4. UP TO THE BATHROOM TO VOID LATISHA COLORED URINE. [place] BANDAID TO RIGHT HIP. UP ON SIDE OF BED FOR BREAKFAST. FALL AND SAFETY PROTOCOLS IN PLACE. C/O PAIN IN HER RIGHT HIP. MEDICATED WITH PRN PAIN MED. PATENT CONTINUES TO PROGRESS TOWARDS D/C GOALS. WILL CONTINUE TO MONITER.
--- NOTE | 2018-08-24 10:09 | PLAN ---
[facility] [place] [address] REHAB UNIT PLAN OF CARE Name: SEFERINO SHETTY Room #: 501-A ADM IN M.R.#: [id number] Admission: 08/13/18 ������������������ Attend Phys: Milo Camacho MD Discharge: ������������������ Date of : 48 Report #: [id number] THIS REPORT FOR: //name// CC: Milo Reilly DATE OF SERVICE: 08/15/2018 PROGRESS NOTE/OVERALL PLAN OF CARE SUBJECTIVE: The patient is seen back today in followup. She is in no distress. Last recorded temperature 97.5, pulse 88, respirations 20, blood pressure 111/55. She is alert and pleasant. She is noted by speech therapy to have issues as far as moderate cognitive deficits. She has severe memory deficits. Transfers are mod assist with gait min assist to 15 feet front-wheeled walker. In occupational therapy, lower body dressing is max assist. ASSESSMENT: 1. Right proximal femur fracture, status post trochanteric fixation nailing on 08/10/2018, partial weightbearing. 2. Fall on 07/23/2017 when she fell striking her head with positive loss of consciousness, passing out for approximately 30 seconds. 3. Functional mobility, ADLs, and cognitive issues as noted. 4. Right fifth metatarsal fracture for which she has a Darco shoe. This occurred on 07/23/2017 as well. 5. History of EtOH usage 1 to 2 glasses of vodka per day. 6. Peripheral neuropathy. 7. Methicillin-susceptible Staphylococcus aureus. 8. Prior left large toe amputation. 9. History of left second toe amputation. PLAN: The overall plan of care is based on the preadmission screen, post-admission physician evaluation, and information garnered from therapy assessments. 1. Estimated length of stay is probably at least 10 days to 2 weeks pending progress. 2. Medical prognosis is reasonably good. 3. Anticipated interventions includes the interdisciplinary acute inpatient rehabilitation program with goal of maximizing her functional independence, so she can hopefully return back to her prior living situation. 4. Anticipated functional outcomes would be for the patient to become modified independent with transfers, mobility, ADLs, and communication, cognition, so she can return back to the home setting. 5. Discharge destination. She has been living in a condominium which is multilevel by herself. She does have involved family. So will need to see whether she can stay with family or how much assistance [place] [address] REHAB UNIT PLAN OF CARE Name: SEFERINO SHETTY Room #: 501-A [facility] IN [facility]#: [id number] Admission: 08/13/18 ������������������ Attend Phys: Milo Camacho MD Discharge: ������������������ Date of : 48 Report #: [id number] this regard. 6. Expected therapy by discipline includes PT, OT and speech 1 hour per day each 5 days a week throughout the duration of the acute inpatient rehabilitation stay. ��������������������������������������������� <ELECTRONICALLY SIGNED> ���������������������������������������� By: Milo Camacho MD ��������������������������������������������� 08/24/18 1009 1057 [id number] Milo Camacho MD /[facility]
--- NOTE | 2018-08-24 10:09 | H ---
[facility] [place] [address] HISTORY AND PHYSICAL Name: SEFERINO SHETTY Room #: 501-A ADM IN M.R.#: [id number] Admission: 08/13/18 ������������������ Attend Phys: Milo Camacho MD Discharge: ������������������ Date of : 48 Report #: [id number] THIS REPORT FOR: //name// CC: Milo Reilly DATE OF SERVICE: 08/13/2018 HISTORY AND PHYSICAL AND POSTADMISSION PHYSICIAN EVALUATION HISTORY OF PRESENT ILLNESS: The patient has been admitted for acute in-hospital inpatient rehabilitation. Please see my consult note dictation from yesterday and the full history and physical. The patient had a prior fall, 07/23/2018 when she hit her head and had positive loss of consciousness and also had a right fifth metatarsal fracture for which she was fitted in a Darco shoe. She has been at home when she was noted to have tripped and had a subsequent injury involving the right hip. She was diagnosed with a right proximal femur fracture, underwent a trochanteric fixation nailing, 08/10/2018. There is a history of alcohol usage, although no noted symptoms with withdrawal per se. She is allowed partial weightbearing, right lower extremity. She has been admitted for acute in-hospital inpatient rehabilitation. PRIOR MEDICAL HISTORY, SURGICAL HISTORY, ALLERGIES, SOCIAL HISTORY: Please see the prior dictation as noted above. MEDICATIONS: Please see the full medication listing as noted. This includes vitamins, herbals, and supplements per report. REVIEW OF SYSTEMS: No complaints of chest pain, shortness of breath or abdominal discomfort. PHYSICAL EXAMINATION: GENERAL: A 67-year-old white female who was in no distress. VITAL SIGNS: Last recorded temperature 36.4, pulse 88, respirations 20, blood pressure 111/55. NEUROLOGIC: Agree with examination as noted. She does have some latency to her responses when seen earlier. MUSCULOSKELETAL: Right hip is dressed. No focal calf swelling. She is needing assistance with basic functional mobility and ADLs. ASSESSMENT: 1. Right proximal femur fracture, status post trochanteric fixation nailing 08/10/2018, partial weightbearing. 2. Fall on 07/23/2017 when she fell striking her head with positive loss of consciousness and there was note that she passed out for approximately [address] [address] HISTORY AND PHYSICAL Name: SEFERINO SHETTY Room #: 501-A [facility] IN ..#: [id number] Admission: 08/13/18 ������������������ Attend Phys: Milo Camacho MD Discharge: ������������������ Date of : 46 Report #: [id number] 3. Right fifth metatarsal fracture for which she has a Darco shoe. This occurred on 07/23/2018. 4. History of ETOH usage one to two glasses of vodka per day. No withdrawal was noted. 5. Peripheral neuropathy. 6. Methicillin-susceptible Staphylococcus aureus. 7. Prior left large toe amputation. 8. History of left second toe amputation. PLAN: The patient has been admitted for acute in-hospital inpatient rehabilitation. From a postadmission physician evaluation perspective, there are no relevant changes since the preadmission screening. Please see the above review of prior and current medical and functional conditions and comorbidities. Please see the previous and current functional status. As far as risk of complications, the patient has multiple medical comorbidities as noted above. Initial plan of care involves the interdisciplinary acute inpatient rehabilitation program with goal of maximizing the patient's functional independence, so she can hopefully return back to her prior living situation. Measurable functional goals would be for the patient to become modified independent with transfers, mobility, ADLs as well as improvement in cognition, communication. We have speech therapy involved as well with a concern regarding potential head injury. Prognosis is reasonably good with estimated length of stay probably at least 10 days to 2 weeks and potentially longer if warranted. Potential barriers would include her multiple medical comorbidities, decreased functional status and her weightbearing limitation of partial weightbearing. The patient meets diagnostic criteria for an acute in-hospital inpatient rehabilitation stay. She meets the medical necessity criteria and we will have the python consultant physicians involved. She does have the tolerance for therapies and has appropriate discharge goals back to the home setting. ��������������������������������������������� <ELECTRONICALLY SIGNED> ���������������������������������������� By: Milo Camacho MD ��������������������������������������������� 08/24/18 1009 1032 [id number] Milo Camacho MD /[facility]
[2018-08-24 19:02] VITALS: BP 108/53
--- NOTE | 2018-08-25 02:18 | NUR ---
PT ALERT AND ORIENTED X 4. AMB TO BR WITH WALKER AND ASSIST X 1 WITHOUT DIFFICULTY. RIGHT HIP INCISION C/D/I WITH STERI-STRIPS. PT C/O PAIN IN RIGHT HIP. HYDROCODONE GIVEN AT HS. MELATONIN ALSO GIVEN PER PT REQUEST. BED ALARM ON FOR SAFETY. PT APPEARS TO BE SLEEPING ON HOURLY ROUNDS.
[2018-08-25 07:30] VITALS: BP 119/64
[2018-08-25 19:30] VITALS: BP 114/54
--- NOTE | 2018-08-25 21:04 | NUR ---
ASSUMED CARE AT APPROX 0715. PATIENT A/O X4. CALLS APPROPIRATELY FOR ASSISTANCE, CALLS FOR MEDS AT APPROPRIATE TIMES. C/O R HIP PAIN, MEDICATED PRN PER ORDERS. STERI-STRIPS TO R HIP INTACT, INCISION WELL-APPROXIMATED. RIGHT FOOT DARCO SHOE IN PLACE FOR AMBULATION. ORTHO CONSULTED REGARDING D/C FOLLOW UP ORDERS AND ORDERS FOR WHEN TO DISCONTINUE DARCO SHOE. PER ORTHOPEDIC TEAM, PATIENT IS TO FOLLOW UP WITHIN ONE WEEK OF DISCHARGE FOR F/U X-RAYS OF HIP AND FOOD, DARCO SHOE TO BE ADDRESSED AT THAT TIME, PATIENT TO CONTINUE AMBULATING WITH IT FOR NOW. PATIENT UP X1 ASSIST GB AND WALKER. FALL PRECAUTIONS IN PLACE. RESTING IN BED AT CHANGE OF SHIFT.
--- NOTE | 2018-08-26 00:43 | NUR ---
PT ASSESSMENT COMPLETED AND VSS. MEDS GIVEN ORDERED AND WELL TOLERATED. FALL PRECAUTIONS IN PLACE. UP TO THE BATHROOM WITH ASST/GAIT/WALKER. STEADY. STERI STRIPS ON R HIP DRY AND INTACT. PRN PAIN MEDICATION WORKING WELL FOR LEVEL 6 PAIN IN HER HIP. SLEEPING AT THIS TIME. WILL CONTINUE TO MONITOR FREQUENTLY.
[2018-08-26 07:10] VITALS: BP 109/54
--- NOTE | 2018-08-26 11:06 | NUR ---
ASSUMED CARE AT 0700. PATIENT IS ALERT AND ORIENTED X4. PATIENT VALADEZ'S, NEUROPSYCHOLOGY DIVISION CHIEF ARE EQUal. LUNGS ARE CLEAR. ABD IS SOFT WITH BSX4. UP TO THE BATHROOM WITH GAIT BELT AND WALKER. UP ON SIDE OF BED FOR BREAKFAST. FALL AND SAFETY PROTOCOLS IN PLACE. C/O PAIN IN HER HIP. MEDICATED WITH PRN PAIN MED. CONTINUES TO PROGRESS TOWARDS D/C GOALS. WILL CONTINUE TO MONITER
[2018-08-26 19:37] VITALS: BP 119/53
--- NOTE | 2018-08-27 00:05 | NUR ---
PT ASSESSMENT COMPLETED AND VSS. MEDS GIVEN ORDERED AND WELL TOLERATED. FALL PRECAUTIONS IN PLACE. UP TO THE BATHROOM WITH ASST/GAIT/WALKER AND SPECIAL SHOE. PT DENIES PAIN THIS EVENING. SLEEPING WELL. EXCITED ABOUT GOING HOME TOMORROW. WILL CONTINUE TO MONITOR FREQUENTLY.
[2018-08-27] MEDS ORDERED: MELATONIN5 M1 PO ×2 (07:43)
[2018-08-27] MEDS ORDERED: PROTONIX 20 MG20 MG PO ×2 (07:43)
[2018-08-27] MEDS ORDERED: COLACE100 MG PO ×2 (07:43)
[2018-08-27] MEDS ORDERED: XARELTO10 MG PO ×2 (07:43)
[2018-08-27 08:30] VITALS: BP 120/47
[2018-08-27 09:33] VITALS: BP 120/47
--- NOTE | 2018-08-27 10:32 | NUR ---
Discharge Planning: Patient will discharge home today and receive HH from [facility] fax # [phone], phone [phone]. DP faxed HH discharge papers to [facility] and called to let them know patient is discharging today.
--- NOTE | 2018-08-27 12:22 | NUR ---
ASSUMED CARE AT APPROX 0715. REPORTS SLEPT GOOD. PATIENT A/O X4. CALLS APPROPIRATELY FOR ASSISTANCE, CALLS FOR MEDS AT APPROPRIATE TIMES. C/O R HIP PAIN RATES PAIN 5/10 PRN HYDROCODONE GIVEN PER ORDERS. STERI-STRIPS TO R HIP INTACT, INCISION WELL-APPROXIMATED. RIGHT FOOT DARCO SHOE IN PLACE FOR AMBULATION. REVIEWED DISCHARGE MEDICATIONS AND APPOINTMENTS WITH PT AND ABOUT ORTHO APPOINTMENT REGARDING D/C FOLLOW UP ORDERS AND ORDERS FOR WHEN TO DISCONTINUE DARCO SHOE. PER ORTHOPEDIC TEAM, PATIENT IS TO FOLLOW UP WITHIN ONE WEEK OF DISCHARGE FOR F/U X-RAYS OF HIP AND FOOD, DARCO SHOE TO BE ADDRESSED AT THAT TIME, PATIENT TO CONTINUE AMBULATING WITH IT FOR NOW. PATIENT UP X1 ASSIST GB AND WALKER. FALL PRECAUTIONS IN PLACE. SITTING IN ROOM EATING LUNCH AND WAITING FOR SON TO PICK HER UP. OFFERED SUPPORTIVE CARE. REASSESSMENT PER CHART. LAST BM WAS LAST NIGHT. VSS ON ROOM AIR. OT ASSISTED PT WITH SHOWER THIS AM. FEELS GOOD, HAS BRIGHT AFFECT. PT ENJOYED THERAPY AT [facility] AND EXCITING TO GO HOME TODAY. WILL CONTINUE TO MONITOR.
--- NOTE | 2018-08-28 16:29 | NUR ---
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 THESE ITEMS WERE HANDED TO THE NURSE BELL PERSON TODAY BY SRT. TOBIAS RN, AND NM CONTACTED THE PATIENT, WHO STATED THAT HER SON JENNIFER WOULD PICK THE ITEMS UP FROM THE PERSONNEL ANALYST OFFICE TOMORROW 08/29. FORM WAS COMPLETED AND PT'S BELONGINGS WERE HANDED TO THE SECUTIRY OFFICER, PAKO THIS AFTERNOON, ALONG WITH THE FORM.
== END 2018-08-27 13:22 | disposition home health service (06) | DRG 536 ==
LOC: ENTRNSPT 08-27 13:03 → EDTRNSPTSTS 08-27 13:11
PROVIDERS: Nurse Practitioner; ADMIT Physical Medicine & Rehabilitation
DX: S72.001A Fracture of unspecified part of neck of right femur, initial encounter for closed fracture (principal); G62.9 Polyneuropathy, unspecified; B95.61 Methicillin susceptible Staphylococcus aureus infection as the cause of diseases classified elsewhere; Z60.2 Problems related to living alone; E78.5 Hyperlipidemia, unspecified; F32.9 Major depressive disorder, single episode, unspecified; R29.6 Repeated falls; R26.9 Unspecified abnormalities of gait and mobility; E87.6 Hypokalemia; K59.00 Constipation, unspecified; G31.84 Mild cognitive impairment of uncertain or unknown etiology; R53.81 Other malaise; Z89.422 Acquired absence of other left toe(s); Z79.899 Other long term (current) drug therapy; Z79.01 Long term (current) use of anticoagulants; Z91.81 History of falling
CPT/HCPCS: 10112

== ENCOUNTER 2019-02-18 16:19 | Emergency (ER) | payer OTHER, MEDICARE ==
[~2019-02-18] VITALS: Ht 175.3 cm; Wt 63.5 kg
[~2019-02-18 16:19] MED LIST changes: +COLACE100 MG PO; +MELATONIN5 M1 PO; +PROTONIX 20 MG20 MG PO
[2019-02-18 17:12] VITALS: BP 115/74
== END 2019-02-18 19:46 | disposition home or self-care (01) ==
LOC: ER 16:19
DX: M79.671 Pain in right foot (principal)

== ENCOUNTER 2019-02-22 11:23 | Inpatient (IN) | payer OTHER, MEDICARE ==
[~2019-02-22] VITALS: Ht 175.3 cm; Wt 63.0 kg
[2019-02-22 11:24] VITALS: BP 140/81
[2019-02-22] MEDS ORDERED: LEVETIRACETAM250 MG PO (11:46)
[2019-02-22 14:58] VITALS: BP 121/59
[2019-02-22 15:20] LABS: HEMATOCRIT 42.1 % (37.0-47.0); MCH 31.9 pg (26.0-34.0); MCHC 33.2 g/dL (28.0-37.0); MCV 96.2 fL (80.0-100.0); RBC 4.38 mil/uL (4.20-5.00); RDW 13.4 % (10.5-14.5); WBC 9.5 thou/uL (4.0-11.0)
[2019-02-22 15:28] LABS: CALCIUM 9.4 mg/dL (8.5-10.1); CREATININE 0.6 mg/dL (0.6-1.0); POTASSIUM 3.7 mmol/L (3.5-5.1)
[2019-02-22 15:50] VITALS: BP 121/76
[2019-02-22 15:54] LABS: URINE BILIRUBIN NEGATIVE (Negative); URINE BLOOD NEGATIVE (Negative); URINE CLARITY CLEAR; URINE COLOR YELLOW; URINE GLUCOSE-RANDOM* NEGATIVE (Negative); URINE KETONES NEGATIVE (Negative); URINE LEUKOCYTES-REFLEX TRACE (Negative); URINE NITRITE-REFLEX NEGATIVE (Negative); URINE PROTEIN (DIPSTICK) NEGATIVE (Negative); URINE UROBILINOGEN 0.2 E.U./dl (0.2-1.0)
--- NOTE | 2019-02-22 17:15 | NUR ---
Arrived from ER at 1600 with family; C/O, clam and cooperative; complained of pain in right ribs, pain medication given and worked; no n/v; vss, afebrile. lab reviewed, patient in bed, watching TV. will keep monitoring.
[2019-02-22 20:15] VITALS: BP 138/75
[2019-02-23 03:35] LABS: CALCIUM 8.4 mg/dL (8.5-10.1); CREATININE 0.8 mg/dL (0.6-1.0); POTASSIUM 3.4 mmol/L (3.5-5.1)
[2019-02-23 03:45] LABS: HEMATOCRIT 37.8 % (37.0-47.0); HEMOGLOBIN 12.6 gm/dL (12.0-15.0); MCH 32.3 pg (26.0-34.0); MCHC 33.3 g/dL (28.0-37.0); RBC 3.89 mil/uL (4.20-5.00); RDW 13.5 % (10.5-14.5)
--- NOTE | 2019-02-23 04:35 | NUR ---
PATIENT ALERT AND ORIENTED X2. UP WITH ONE ASSIST AND PATIENT ALSO GETS OOB BY HERSELF - ALARM IS ON. SMALL BM. SCHEDULED PAIN MEDICATION APPEARS TO KEEP HER PAIN TOLERABLE. BS MONITORED PER ORDER. CRITICAL LAB THIS AM OF WBC 1.4 - CALLED TO DR. SHANE, NO ORDERS GIVEN DUE TO PATIENTS MYELODYSPLASTIC SYNDROME. RESTING QUIETLY. WILL MONITOR.
--- NOTE | 2019-02-23 04:49 | NUR ---
PATIENT ALERT AND ORIENTED X4. UP WITH SBA TO BATHROOM. IVF INFUSING W/O COMPLICATION. MEDICATED FOR PAIN X2 AT TIME OF NOTE. PAIN WITH MOVEMENT DUE TO FX RIBS. RESTING QUIETLY, HOWEVER, C/O TROUBLE SLEEPING. WILL MONITOR.
[2019-02-23 08:43] VITALS: BP 123/70
[2019-02-23 10:41] LABS: MAGNESIUM 1.6 mg/dL (1.8-2.4); PHOSPHORUS 3.9 mg/dL (2.5-4.9)
--- NOTE | 2019-02-23 11:08 | NUR ---
PT CARE ASSUMED AT 0700. A&Ox4. UP WITH ONE AND ASSIST. IV. FLUIDS RUNNING AT 75ML/HR. NO REDNESS OR TENDERNESS NOTED. PAIN ANAGED WELL WITH MEDICATION. PT AND OT EVALUATION TODAY. ACHS ALL IN NORMAL RANGES. VITALS STABLE. POTASSIUM LOW AT 3.4. MD STARTED ON POTASSIUM TOMORROW.
[2019-02-23 11:10] LABS: TSH 1.692 uIU/mL (0.358-3.740)
[2019-02-23 18:27] VITALS: BP 123/70
[2019-02-23 20:34] VITALS: BP 139/62
--- NOTE | 2019-02-23 23:34 | NUR ---
PT AXOX4.UP WITH SBA TO THE BR.PT ABLE TO URINATE IN THE BR,BLADDER SCANNED,180CC NOTED POST VOID.NO STOOL YET FOR OCCULT BLOOD.IVF INFUSING ORDERED.PT NOT COMPLIANT WITH FALL PRECAUTIONS.CALL LIGHT WITHIN REACH.
[2019-02-24 03:37] VITALS: BP 131/69
[2019-02-24 05:12] LABS: ABSOLUTE NEUTROPHILS 4.5 thou/uL (1.4-8.2); BASOPHILS 0.2 % (0.0-2.0); EOSINOPHILS 0.1 % (0.0-3.0); HEMATOCRIT 36.5 % (37.0-47.0); HEMOGLOBIN 11.9 gm/dL (12.0-15.0); LYMPHOCYTES 25.3 % (24.0-44.0); MCH 31.6 pg (26.0-34.0); MCHC 32.4 g/dL (28.0-37.0); MCV 97.3 fL (80.0-100.0); MONOCYTES 7.7 % (1.0-8.0); PLATELET COUNT 208 thou/uL (150-400); POLYS 66.7 % (36.0-66.0); RBC 3.76 mil/uL (4.20-5.00); RDW 13.5 % (10.5-14.5); WBC 6.8 thou/uL (4.0-11.0)
[2019-02-24 05:13] LABS: CALCIUM 8.8 mg/dL (8.5-10.1); CREATININE 0.6 mg/dL (0.6-1.0); POTASSIUM 3.9 mmol/L (3.5-5.1)
[2019-02-24 07:48] VITALS: BP 171/79
[2019-02-24 16:06] VITALS: BP 156/81
--- NOTE | 2019-02-24 18:27 | NUR ---
PT ASSESSED THIS AM. NO SIGNS OF ALCOHOL WITHDRAWAL. VERY FORGETFUL. DID NOT REMEMBER THAT DR. PUGA CAME THIS AM TO SEE HER. AMBULATES VERY STIFF IN HER ANKLES USING A CANE W/ STANDBY. PAIN MEDS TWICE THIS SHIFT. WHICH HELPS RIB PAIN. EATING AND DRINKING WELL. HAD BM X2 THIS SHIFT AFTER MON.
[2019-02-24 19:16] VITALS: BP 161/81
--- NOTE | 2019-02-25 04:38 | NUR ---
PATIENT ALERT AND ORIENTED X4. UP WITH THIS NURSE TO THE BATHROOM WITH SBA AND CANE - PATIENT MOVES SLOW AND LIKES TO HOLD ON TO FURNITURE AND THE WALL. MEDICATED X1 WITH HYDROCODONE PRN WITH GOOD RESULTS. STATES THAT SHE DOES NOT SLEEP, HOWEVER, THIS NURSE NOTES SLEEP AND RESTING WELL. WILL MONITOR.
[2019-02-25 08:57] VITALS: BP 131/69
[2019-02-25] MEDS ORDERED: NORCO 10-325 T1 EACH PO (11:38)
[2019-02-25 11:45] VITALS: BP 131/69
[2019-02-25 12:14] VITALS: BP 131/69
--- NOTE | 2019-02-25 13:57 | NUR ---
ASSESSMENT-PT LIVES AT HOME ALONE. PT SAYS SHE HAS A CANE AND A WALKER AT HOME IF NEEDED. PT HAS A RIDE HOME AND WANTS TO GO ONLY HOME TODAY. PT IS AGREEABLE TO HAVING HH SERVICES & SHE HAS HAD [facility] IN THE PAST. DISCUSSED [facility] AND SHE IS AGREEABLE TO HAVING THEM. ASKED DC FOIL OPERATOR TO ARRANGE HH SERVICES FOR PT DISCHARGING TODAY. PT'S SON LIVES CLOSE SHE SAYS.
--- NOTE | 2019-02-25 17:00 | NUR ---
FAXED REFERRAL TO [facility] SPOKE WITH ANAIS IN INTAKE SHE CAN ACCEPT AND DP FAXED DC ORDERS/SUMMARY AND RECEIVED CONFIRMATION THEY WILL NOTIFY PT TIME OF VISITS.
== END 2019-02-25 16:45 | disposition home health service (06) | DRG 185 ==
LOC: ER 11:23 → 4S 13:53 → EROBS 13:53 → 4S 15:34 → ENTRNSPT 02-25 12:06 → EDTRNSPTSTS 02-25 12:22 → CMPTRNSPT 02-25 12:55 → 4S 02-25 16:45
PROVIDERS: Emergency Medicine; Internal Medicine; ADMIT Hospitalist
DX: S22.49XA Multiple fractures of ribs, unspecified side, initial encounter for closed fracture (principal); F10.20 Alcohol dependence, uncomplicated; G62.9 Polyneuropathy, unspecified; F32.9 Major depressive disorder, single episode, unspecified; E87.6 Hypokalemia; D72.829 Elevated white blood cell count, unspecified; E78.5 Hyperlipidemia, unspecified; W01.0XXA Fall on same level from slipping, tripping and stumbling without subsequent striking against object, initial encounter; Z89.412 Acquired absence of left great toe; Z88.6 Allergy status to analgesic agent; Y93.89 Activity, other specified; Y92.89 Other specified places as the place of occurrence of the external cause; Y99.8 Other external cause status; Z87.891 Personal history of nicotine dependence
CPT/HCPCS: 10195

== ENCOUNTER 2019-03-16 12:12 | Emergency (ER) | payer OTHER, MEDICARE ==
[~2019-03-16] VITALS: Ht 175.3 cm; Wt 63.5 kg
[~2019-03-16 12:12] MED LIST changes: +NORCO 10-325 T1 EACH PO
[2019-03-16] MEDS ORDERED: ZOFRAN ODT4 MG PO (15:14)
[2019-03-16] MEDS ORDERED: AUGMENTIN 875-1 EACH PO (15:14)
[2019-03-16] MEDS ORDERED: FLONASE 0.05%50 MCG NARES (15:14)
[2019-03-16 15:45] VITALS: BP 115/68
== END 2019-03-16 15:45 | disposition home or self-care (01) ==
LOC: ER 12:12
DX: S02.32XA Fracture of orbital floor, left side, initial encounter for closed fracture (principal); S05.11XA Contusion of eyeball and orbital tissues, right eye, initial encounter; M25.561 Pain in right knee; F32.9 Major depressive disorder, single episode, unspecified; Z87.891 Personal history of nicotine dependence; Z88.6 Allergy status to analgesic agent; W11.XXXA Fall on and from ladder, initial encounter; Y93.89 Activity, other specified; Y92.89 Other specified places as the place of occurrence of the external cause; Y99.8 Other external cause status